=== PATIENT | male | born 1980 | race Caucasian/White ===

== ENCOUNTER 2017-07-31 16:49 | Emergency (ER) | payer BC ==
[2017-07-31 18:21] VITALS: BP 152/85
[2017-07-31] MEDS ORDERED: Ibuprofen TAB* 400 MG PO ONE (19:29)
--- NOTE | 2017-07-31 19:43 | RAD ---
INDICATION: Left hand injury. TECHNIQUE: 4 views of the left hand were obtained. FINDINGS: There is soft tissue swelling present in the fourth and fifth fingers. No fracture is seen. There are 2 small metallic densities which project overlying the soft tissues adjacent to the proximal aspect of the fourth proximal phalanx consistent with foreign bodies in or on the soft tissues. IMPRESSION: 1. SOFT TISSUE SWELLING, NO FRACTURE IS SEEN. 2. SMALL METALLIC FOREIGN BODIES IN OR ON THE SOFT TISSUES OVERLYING THE FOURTH PROXIMAL PHALANX.
[2017-07-31] MEDS ORDERED: Tetan/Diph/Pertus SYR(Tdap)* 0.5 ML SYR(BOOSTRIX) use SYR IM ONE (20:13)
[2017-07-31] MEDS ORDERED: Lidocaine 2% PF * 5 ML VIAL INJ ONE (20:21)
[2017-07-31] MEDS ORDERED: Lidocaine 2% PF * 5 ML VIAL ONE (20:22)
--- NOTE | 2017-07-31 20:23 | UC ---
Laceration HPI - HPI Summary HPI Summary: Fell while carrying a window, foot slipped on a stair, and the window landed on his hand, causing a laceration of the palm. Xray obtained and does not show a fracture, but does show a small metallic body in the proximal phalanx area, but this is distant from the wound and is likely old. Elbow also contused in the fall. - History Of Current Complaint Chief Complaint: UCLaceration Stated Complaint: LEFT HAND LAC Time Seen by Provider: 07/31/17 19:29 Hx Obtained From: Patient Laceration Location: Hand Mechanism Of Injury: Blunt Trauma Onset/Duration: Sudden Onset Severity: Moderate Pain Intensity: 5 Aggravating Factors: Position, Movement Related History: Dominant Hand Right - Allergies/Home Medications Allergies/Adverse Reactions: Allergies Allergy/AdvReac Type Severity Reaction Status Date / Time pollen extracts Allergy Sneezing Verified 07/31/17 18:22 PMH/Surg Hx/FS Hx/Imm Hx Previously Healthy: Yes - Surgical History Surgical History: None - Family History Known Family History: Positive: None - Social History Occupation: Employed Full-time - [employer] Lives: With Family Alcohol Use: Daily Alcohol Amount: "COUPLE BEERS"/DAY Substance Use Type: None Smoking Status (MU): Never Smoked Tobacco Review of Systems Constitutional: Negative Skin: Negative Eyes: Negative ENT: Negative Respiratory: Negative Cardiovascular: Negative Gastrointestinal: Negative Genitourinary: Negative Motor: Negative Neurovascular: Negative - digital sensation is intact. Musculoskeletal: Arthralgia - contused left elbow in the fall Neurological: Negative Psychological: Anxious Is Patient Immunocompromised?: No All Other Systems Reviewed And Are Negative: Yes Physical Exam Triage Information Reviewed: Yes Appearance: Well-Appearing, Pain Distress - moderate. Vital Signs: Initial Vital Signs Temp 99 F 07/31/17 18:14 Pulse 97 07/31/17 18:14 Resp 16 07/31/17 18:14 BP 152/85 07/31/17 18:14 Pulse Ox 97 07/31/17 18:14 Respiratory Exam: Normal Musculoskeletal: Positive: Strength Intact - can fully flex and extend digits., ROM Intact - at left elbow, Other: - ecchymosis forming over proximal ulna. Neurological Exam: Other - normal digital sensation Neurological: Positive: Alert, Muscle Tone Normal Laceration Repair - Laceration Repair 1 Description: Irregular Laceration Size After Repair: Length (cm) - 5 Modified For Repair: Yes - tiny bits of fat pad removed Anesthesia Used: 2.0% Lido Cleansing Completed Via Routine Prep: Yes Irrigation With Pressure Irrigation Device: Yes Closure Material: Sutures - 5-0 prolene Closure Method: Single Layer Suture Of: Skin Suture Type: Prolene 2 Description: Linear - left hand fifth digit over proximal phalanx Laceration Size After Repair: Length (cm) - 0.1 Modified For Repair: No Cleansing Completed Via Routine Prep: Yes Irrigation With Pressure Irrigation Device: Yes Closure Material: SteriStrips Laceration Course/Dx - Course/Dx Course Of Treatment: repair of laceration - Differential Dx - Laceration/Wound Differental Diagnoses: Laceration Provider Diagnoses: laceration left hand palmar surface. puncture wound left hand fifth digit. left elbow contusion Discharge - Sign-Out/Discharge Documenting (check all that apply): Discharge - Discharge Plan Condition: Stable Disposition: HOME Prescriptions: Cephalexin CAP* [Keflex 500 CAP*] 500 mg PO QID #20 cap Patient Education Materials: Laceration (ED), Diphtheria/Pertussis/Tetanus Vaccine (By injection) Forms: *Work Release Referrals: No Primary Care Phys,NOPCP [Primary Care Provider] - Additional Instructions: Use ibuprofen 800mg 2 or 3 times daily for pain control. You have 2 doses of hydrocodone for overnight. Take cephalexin to prevent infection in the wound. Sutures should remain in for 10 days. Keep the wound as clean and dry as possible. Ice to the left elbow contusion 2 or 3 times daily. You have received a tetanus booster today--good for 10 years - Billing Disposition and Condition Condition: STABLE Disposition: HOME
[2017-07-31] MEDS ORDERED: HYDROcodone/ACETAMIN 5-325 MG* 1 TAB PO ONE ×3 (21:09→21:22)
[2017-07-31] MEDS ORDERED: Cephalexin CAP* 500 MG PO ONE (21:21)
== END 2017-07-31 21:42 | disposition home or self-care (01) ==
LOC: UCCORT 16:49
DX: S61.412A Laceration without foreign body of left hand, initial encounter (principal); W25.XXXA Contact with sharp glass, initial encounter; Y92.9 Unspecified place or not applicable; Z23 Encounter for immunization
CPT/HCPCS: 12002; 90471; 90715; 99203; A9270-GY; G0463

== ENCOUNTER 2017-08-10 12:01 | Emergency (ER) | payer BC ==
[2017-08-10 13:33] VITALS: BP 156/90
--- NOTE | 2017-08-10 13:56 | UC ---
Skin Complaint HPI - HPI Summary HPI Summary: Left hand laceration 10 days ago. Here for suture removal. - History of Current Complaint Chief Complaint: UCWounds Time Seen by Provider: 08/10/17 13:50 Stated Complaint: STITCH REMOVAL Hx Obtained From: Patient Onset/Duration: Sudden Onset, Lasting Days - 10, Still Present Skin Exposure Onset/Duration: Days Ago - 10 Timing: Constant Onset Severity: Severe Current Severity: Mild Pain Intensity: 3 Location: Hand (Left) Aggravating Factor(s): Touch Alleviating Factor(s): Nothing Associated Signs & Symptoms: Positive: Tenderness Related History: Trauma - Allergy/Home Medications Allergies/Adverse Reactions: Allergies Allergy/AdvReac Type Severity Reaction Status Date / Time pollen extracts Allergy Sneezing Verified 07/31/17 18:22 Review of Systems ENT: Sore Throat, Nasal Discharge Respiratory: Cough Is Patient Immunocompromised?: No All Other Systems Reviewed And Are Negative: Yes PMH/Surg Hx/FS Hx/Imm Hx Previously Healthy: Yes - Surgical History Surgical History: None - Family History Known Family History: Positive: Diabetes - Social History Occupation: Employed Full-time Lives: With Family Alcohol Use: Daily Alcohol Amount: "COUPLE BEERS"/DAY Substance Use Type: None Smoking Status (MU): Never Smoked Tobacco Physical Exam Triage Information Reviewed: Yes Appearance: Well-Appearing, No Pain Distress, Well-Nourished Vital Signs: Initial Vital Signs Temp 97.5 F 08/10/17 13:27 Pulse 85 08/10/17 13:27 Resp 16 08/10/17 13:27 BP 156/90 08/10/17 13:27 Pulse Ox 98 08/10/17 13:27 Vital Signs Reviewed: Yes Eyes: Positive: Conjunctiva Clear ENT Exam: Normal Neck exam: Normal Respiratory Exam: Normal Cardiovascular Exam: Normal Musculoskeletal Exam: Normal Neurological Exam: Normal Psychological Exam: Normal Skin: Positive: Other - Laceration left palm with healing at the base. Most stitches not extending across the wound. Sutures removed without difficulty. Course/Dx - Differential Diagnoses - Skin Complaint Differential Diagnoses: Impetigo, Lymphadenitis, Lymphangitis - Diagnoses Provider Diagnoses: Open wound left hand. Discharge - Sign-Out/Discharge Documenting (check all that apply): Discharge/Admit/Transfer - Discharge Plan Condition: Stable Disposition: HOME Patient Education Materials: Wound Dehiscence (ED) Referrals: No Primary Care Phys,NOPCP [Primary Care Provider] - Additional Instructions: Continue to use antibiotic ointment twice a day until the wound is healed in. This may take 2 weeks. - Billing Disposition and Condition Condition: STABLE Disposition: HOME
== END 2017-08-10 14:12 | disposition home or self-care (01) ==
LOC: UCCORT 12:01
DX: S61.412D Laceration without foreign body of left hand, subsequent encounter (principal); X58.XXXD Exposure to other specified factors, subsequent encounter